=== PATIENT | female | born 1945 | race Caucasian/White ===

== ENCOUNTER → 2016-11-18 | Outpatient (CLI) | payer OTHER ==
[~2016-11-18] VITALS: Ht 152.4 cm; Wt 81.6 kg
[~2016-11-18] MED LIST: ASPIR 8181 MG PO; LIPITOR 20 MG T20 M1 PO; LISINOPRIL20 MG PO; METFORMIN HCL500 MG PO; METOPROLOL TAR100 MG PO; VANCO1GM IV
[2016-11-18 12:00] VITALS: BP 153/70
[2016-11-18 14:21] VITALS: BP 153/70
== END ==
LOC: OPONC 11:32
DX: A49.02 Methicillin resistant Staphylococcus aureus infection, unspecified site (principal); M86.9 Osteomyelitis, unspecified
CPT/HCPCS: 95000; 95001

== ENCOUNTER → 2016-11-19 | Outpatient (CLI) | payer OTHER ==
[2016-11-19 09:30] VITALS: BP 149/78
== END ==
LOC: OPONC 02:49
DX: M86.9 Osteomyelitis, unspecified (principal); B95.62 Methicillin resistant Staphylococcus aureus infection as the cause of diseases classified elsewhere
CPT/HCPCS: 27000; 95000; 95001

== ENCOUNTER → 2016-11-20 | Outpatient (CLI) | payer OTHER ==
[2016-11-20 10:21] VITALS: BP 144/66
== END ==
LOC: OPONC 06:24
DX: A49.02 Methicillin resistant Staphylococcus aureus infection, unspecified site (principal); M86.8X4 Other osteomyelitis, hand
CPT/HCPCS: 95000; 95001

== ENCOUNTER → 2016-11-22 | Outpatient (CLI) | payer OTHER | LOC: OPONC 06:06 | DX: A49.02 Methicillin resistant Staphylococcus aureus infection, unspecified site (principal); M86.8X4 Other osteomyelitis, hand | CPT/HCPCS: 95000; 95001 ==

== ENCOUNTER → 2016-11-23 | Outpatient (CLI) | payer OTHER ==
[2016-11-23 09:53] LABS: MCH 30.4 pg (26.0-34.0); MCHC 34.1 g/dL (28.0-37.0); MCV 89.2 fL (80.0-100.0); RBC 4.27 mil/uL (4.20-5.00); RDW 14.7 % (10.5-14.5); WBC 4.7 thou/uL (4.0-11.0)
[2016-11-23 10:15] LABS: ALBUMIN 3.8 g/dL (3.4-5.0); CREATININE 0.8 mg/dL (0.6-1.0); POTASSIUM 3.8 mmol/L (3.5-5.1); TOTAL BILIRUBIN 0.3 mg/dL (<0.1-1.0); TOTAL PROTEIN 7.3 g/dL (6.4-8.2)
[2016-11-23 11:27] VITALS: BP 152/75
== END ==
LOC: OPONC 02:28
PROVIDERS: Specialist
DX: A49.02 Methicillin resistant Staphylococcus aureus infection, unspecified site (principal); M86.8X4 Other osteomyelitis, hand
CPT/HCPCS: 95000; 95001

== ENCOUNTER → 2016-11-24 | Outpatient (CLI) | payer OTHER ==
[2016-11-24 09:15] VITALS: BP 152/73
== END ==
LOC: OPONC 02:34
DX: A49.02 Methicillin resistant Staphylococcus aureus infection, unspecified site (principal); M86.9 Osteomyelitis, unspecified
CPT/HCPCS: 95000; 95001

== ENCOUNTER → 2016-11-25 | Outpatient (CLI) | payer OTHER ==
[2016-11-25 09:15] VITALS: BP 140/69
== END ==
LOC: OPONC 01:36
DX: M86.9 Osteomyelitis, unspecified (principal); A49.02 Methicillin resistant Staphylococcus aureus infection, unspecified site
CPT/HCPCS: 95000; 95001

== ENCOUNTER → 2016-11-26 | Outpatient (CLI) | payer OTHER ==
[2016-11-26 09:43] LABS: ABSOLUTE NEUTROPHILS 3.1 thou/uL (1.4-8.2); BASOPHILS 0.7 % (0.0-2.0); EOSINOPHILS 6.8 % (0.0-3.0); HEMATOCRIT 38.3 % (37.0-47.0); HEMOGLOBIN 13.1 gm/dL (12.0-15.0); LYMPHOCYTES 14.8 % (24.0-44.0); MCH 30.2 pg (26.0-34.0); MCHC 34.2 g/dL (28.0-37.0); MCV 88.3 fL (80.0-100.0); MONOCYTES 8.6 % (1.0-8.0); PLATELET COUNT 185 thou/uL (150-400); POLYS 69.1 % (36.0-66.0); RBC 4.33 mil/uL (4.20-5.00); RDW 14.5 % (10.5-14.5); WBC 4.4 thou/uL (4.0-11.0)
[2016-11-26 09:46] VITALS: BP 141/73
[2016-11-26 09:47] LABS: MANUAL DIFF NO
[2016-11-26 09:52] LABS: CREATININE 0.9 mg/dL (0.6-1.0); POTASSIUM 3.4 mmol/L (3.5-5.1)
== END ==
LOC: OPONC 01:13
PROVIDERS: Specialist
DX: M86.8X8 Other osteomyelitis, other site (principal); B95.62 Methicillin resistant Staphylococcus aureus infection as the cause of diseases classified elsewhere

== ENCOUNTER → 2016-11-27 | Outpatient (CLI) | payer OTHER ==
[2016-11-27 09:47] VITALS: BP 125/69
== END ==
LOC: OPONC 00:20
DX: A49.02 Methicillin resistant Staphylococcus aureus infection, unspecified site (principal); M86.8X4 Other osteomyelitis, hand
CPT/HCPCS: 95000

== ENCOUNTER → 2016-11-28 | Outpatient (CLI) | payer OTHER | LOC: OPONC 06:08 | DX: A49.02 Methicillin resistant Staphylococcus aureus infection, unspecified site (principal); M86.8X4 Other osteomyelitis, hand | CPT/HCPCS: 95000 ==

== ENCOUNTER → 2016-11-29 | Outpatient (CLI) | payer OTHER | LOC: OPONC 05:40 | DX: A49.02 Methicillin resistant Staphylococcus aureus infection, unspecified site (principal); M86.8X4 Other osteomyelitis, hand | CPT/HCPCS: 95000 ==

== ENCOUNTER → 2016-11-30 | Outpatient (CLI) | payer OTHER ==
[2016-11-30 10:03] LABS: HEMATOCRIT 37.6 % (37.0-47.0); HEMOGLOBIN 12.9 gm/dL (12.0-15.0); MCH 30.1 pg (26.0-34.0); MCHC 34.2 g/dL (28.0-37.0); MCV 88.2 fL (80.0-100.0); RBC 4.27 mil/uL (4.20-5.00); RDW 14.5 % (10.5-14.5)
[2016-11-30 10:15] LABS: CALCIUM 9.3 mg/dL (8.5-10.1); CREATININE 0.8 mg/dL (0.6-1.0); POTASSIUM 3.9 mmol/L (3.5-5.1)
[2016-11-30 10:19] LABS: ALBUMIN 3.6 g/dL (3.4-5.0); TOTAL BILIRUBIN 0.3 mg/dL (<0.1-1.0); TOTAL PROTEIN 7.4 g/dL (6.4-8.2)
[2016-11-30 10:23] VITALS: BP 147/70
== END ==
LOC: OPONC 00:55
PROVIDERS: Specialist
DX: A49.02 Methicillin resistant Staphylococcus aureus infection, unspecified site (principal); M86.8X4 Other osteomyelitis, hand
CPT/HCPCS: 95000

== ENCOUNTER → 2016-12-01 | Outpatient (CLI) | payer OTHER ==
[2016-12-01 09:30] VITALS: BP 133/67
== END ==
LOC: OPONC 01:06
DX: M86.8X8 Other osteomyelitis, other site (principal)
CPT/HCPCS: 95000

== ENCOUNTER → 2016-12-02 | Outpatient (CLI) | payer OTHER ==
[2016-12-02 09:30] VITALS: BP 121/70
== END ==
LOC: OPONC 00:37
DX: A49.02 Methicillin resistant Staphylococcus aureus infection, unspecified site (principal); M86.8X4 Other osteomyelitis, hand
CPT/HCPCS: 95000

== ENCOUNTER → 2016-12-03 | Outpatient (CLI) | payer OTHER ==
[2016-12-03 10:05] VITALS: BP 131/74
== END ==
LOC: OPONC 00:51
DX: A49.02 Methicillin resistant Staphylococcus aureus infection, unspecified site (principal); M86.8X4 Other osteomyelitis, hand
CPT/HCPCS: 95000

== ENCOUNTER → 2016-12-04 | Outpatient (CLI) | payer OTHER ==
[2016-12-04 09:55] VITALS: BP 168/68
== END ==
LOC: OPONC 01:41
DX: A49.02 Methicillin resistant Staphylococcus aureus infection, unspecified site (principal); M86.8X4 Other osteomyelitis, hand
CPT/HCPCS: 95000

== ENCOUNTER → 2016-12-05 | Outpatient (CLI) | payer OTHER | LOC: OPONC 05:48 | DX: M86.8X5 Other osteomyelitis, thigh (principal); B95.62 Methicillin resistant Staphylococcus aureus infection as the cause of diseases classified elsewhere | CPT/HCPCS: 95000 ==

== ENCOUNTER → 2016-12-06 | Outpatient (CLI) | payer OTHER | LOC: OPONC 10:08 | DX: M86.8X4 Other osteomyelitis, hand (principal) | CPT/HCPCS: 95000 ==

== ENCOUNTER → 2016-12-07 | Outpatient (CLI) | payer OTHER ==
[2016-12-07 09:55] VITALS: BP 131/65
[2016-12-07 10:18] LABS: HEMATOCRIT 37.9 % (37.0-47.0); HEMOGLOBIN 12.8 gm/dL (12.0-15.0); MCH 29.8 pg (26.0-34.0); MCHC 33.8 g/dL (28.0-37.0); MCV 88.3 fL (80.0-100.0); RBC 4.29 mil/uL (4.20-5.00); RDW 14.4 % (10.5-14.5); WBC 4.4 thou/uL (4.0-11.0)
[2016-12-07 10:30] LABS: ALBUMIN 3.7 g/dL (3.4-5.0); CREATININE 0.9 mg/dL (0.6-1.0); POTASSIUM 3.7 mmol/L (3.5-5.1); TOTAL BILIRUBIN 0.3 mg/dL (<0.1-1.0); TOTAL PROTEIN 7.4 g/dL (6.4-8.2)
== END ==
LOC: OPONC 02:09
PROVIDERS: Specialist
DX: M86.8X4 Other osteomyelitis, hand (principal)
CPT/HCPCS: 95000

== ENCOUNTER → 2016-12-08 | Outpatient (CLI) | payer OTHER | LOC: OPONC 01:58 | DX: M86.8X8 Other osteomyelitis, other site (principal); B95.62 Methicillin resistant Staphylococcus aureus infection as the cause of diseases classified elsewhere | CPT/HCPCS: 95000 ==

== ENCOUNTER → 2016-12-09 | Outpatient (CLI) | payer OTHER ==
[2016-12-09 09:50] VITALS: BP 144/67
== END ==
LOC: OPONC 01:34
DX: M86.8X8 Other osteomyelitis, other site (principal)
CPT/HCPCS: 95000

== ENCOUNTER → 2016-12-12 | Outpatient (CLI) | payer OTHER | LOC: OPONC 12-11 08:35 | DX: M86.8X4 Other osteomyelitis, hand (principal); B95.62 Methicillin resistant Staphylococcus aureus infection as the cause of diseases classified elsewhere | CPT/HCPCS: 95000 ==

== ENCOUNTER → 2016-12-14 | Outpatient (CLI) | payer OTHER ==
[2016-12-14 10:02] LABS: HEMATOCRIT 37.3 % (37.0-47.0); MCH 30.7 pg (26.0-34.0); MCHC 34.8 g/dL (28.0-37.0); MCV 88.4 fL (80.0-100.0); RBC 4.22 mil/uL (4.20-5.00); RDW 14.6 % (10.5-14.5); WBC 4.2 thou/uL (4.0-11.0)
[2016-12-14 10:15] LABS: ALBUMIN 3.6 g/dL (3.4-5.0); CALCIUM 8.9 mg/dL (8.5-10.1); CREATININE 0.8 mg/dL (0.6-1.0); POTASSIUM 3.9 mmol/L (3.5-5.1); TOTAL BILIRUBIN 0.4 mg/dL (<0.1-1.0); TOTAL PROTEIN 7.2 g/dL (6.4-8.2)
[2016-12-14 11:02] VITALS: BP 129/67
== END ==
LOC: OPONC 00:34
PROVIDERS: Specialist
DX: M86.8X4 Other osteomyelitis, hand (principal); B95.62 Methicillin resistant Staphylococcus aureus infection as the cause of diseases classified elsewhere
CPT/HCPCS: 95000

== ENCOUNTER → 2016-12-15 | Outpatient (CLI) | payer OTHER ==
[2016-12-15 09:56] VITALS: BP 139/70
== END ==
LOC: OPONC 07:44
DX: M86.8X4 Other osteomyelitis, hand (principal); B95.62 Methicillin resistant Staphylococcus aureus infection as the cause of diseases classified elsewhere
CPT/HCPCS: 95000

== ENCOUNTER → 2016-12-16 | Outpatient (CLI) | payer OTHER ==
[2016-12-16 09:30] VITALS: BP 125/74
== END ==
LOC: OPONC 02:33
DX: M86.8X4 Other osteomyelitis, hand (principal); B95.62 Methicillin resistant Staphylococcus aureus infection as the cause of diseases classified elsewhere
CPT/HCPCS: 95000

== ENCOUNTER → 2016-12-17 | Outpatient (CLI) | payer OTHER ==
[2016-12-17 11:14] VITALS: BP 151/67
== END ==
LOC: OPONC 01:41
DX: M86.8X4 Other osteomyelitis, hand (principal); B95.62 Methicillin resistant Staphylococcus aureus infection as the cause of diseases classified elsewhere
CPT/HCPCS: 95000

== ENCOUNTER → 2016-12-18 | Outpatient (CLI) | payer OTHER | LOC: OPONC 00:57 | DX: M86.8X4 Other osteomyelitis, hand (principal); B95.62 Methicillin resistant Staphylococcus aureus infection as the cause of diseases classified elsewhere | CPT/HCPCS: 95000 ==

== ENCOUNTER → 2016-12-19 | Outpatient (CLI) | payer OTHER | LOC: OPONC 12-18 07:02 | DX: M86.8X4 Other osteomyelitis, hand (principal); B95.62 Methicillin resistant Staphylococcus aureus infection as the cause of diseases classified elsewhere | CPT/HCPCS: 95000 ==

== ENCOUNTER → 2016-12-20 | Outpatient (CLI) | payer OTHER | LOC: OPONC 07:05 | DX: M86.8X4 Other osteomyelitis, hand (principal); B95.62 Methicillin resistant Staphylococcus aureus infection as the cause of diseases classified elsewhere | CPT/HCPCS: 95000 ==

== ENCOUNTER → 2016-12-21 | Outpatient (CLI) | payer OTHER ==
[2016-12-21 09:52] LABS: HEMATOCRIT 38.9 % (37.0-47.0); MCH 29.7 pg (26.0-34.0); MCHC 33.6 g/dL (28.0-37.0); MCV 88.4 fL (80.0-100.0); RBC 4.4 mil/uL (4.20-5.00); RDW 14.7 % (10.5-14.5); WBC 6.1 thou/uL (4.0-11.0)
[2016-12-21 10:17] LABS: ALBUMIN 3.7 g/dL (3.4-5.0); CREATININE 0.8 mg/dL (0.6-1.0); TOTAL BILIRUBIN 0.4 mg/dL (<0.1-1.0); TOTAL PROTEIN 7.5 g/dL (6.4-8.2)
[2016-12-21 13:39] VITALS: BP 145/74
== END ==
LOC: OPONC 00:23
PROVIDERS: Specialist
DX: M86.8X8 Other osteomyelitis, other site (principal); B95.62 Methicillin resistant Staphylococcus aureus infection as the cause of diseases classified elsewhere
CPT/HCPCS: 95000; 95001

== ENCOUNTER → 2016-12-22 | Outpatient (CLI) | payer OTHER | LOC: OPONC 00:57 | DX: M86.8X4 Other osteomyelitis, hand (principal); B95.62 Methicillin resistant Staphylococcus aureus infection as the cause of diseases classified elsewhere | CPT/HCPCS: 95000; 95113 ==

== ENCOUNTER → 2016-12-23 | Outpatient (CLI) | payer OTHER ==
[2016-12-23 09:44] VITALS: BP 127/67
== END ==
LOC: OPONC 00:36
DX: M86.8X8 Other osteomyelitis, other site (principal); B95.62 Methicillin resistant Staphylococcus aureus infection as the cause of diseases classified elsewhere
CPT/HCPCS: 95000

== ENCOUNTER → 2016-12-24 | Outpatient (CLI) | payer OTHER ==
[2016-12-24 09:53] VITALS: BP 120/58
== END ==
LOC: OPONC 00:45
DX: M86.8X4 Other osteomyelitis, hand (principal); B95.62 Methicillin resistant Staphylococcus aureus infection as the cause of diseases classified elsewhere
CPT/HCPCS: 95000

== ENCOUNTER → 2016-12-25 | Outpatient (CLI) | payer OTHER ==
[2016-12-25 09:59] VITALS: BP 124/62
== END ==
LOC: OPONC 01:18
DX: M86.8X4 Other osteomyelitis, hand (principal); B95.62 Methicillin resistant Staphylococcus aureus infection as the cause of diseases classified elsewhere
CPT/HCPCS: 95000

== ENCOUNTER 2016-12-26 05:45 | Outpatient (CLI) | payer OTHER | END 2016-12-26 08:00 | disposition home or self-care (01) | LOC: OPONC 05:45 | DX: M86.8X4 Other osteomyelitis, hand (principal); B95.62 Methicillin resistant Staphylococcus aureus infection as the cause of diseases classified elsewhere | CPT/HCPCS: 95000 ==

== ENCOUNTER → 2016-12-27 | Outpatient (CLI) | payer OTHER | LOC: OPONC 05:52 | DX: M86.8X4 Other osteomyelitis, hand (principal); B95.62 Methicillin resistant Staphylococcus aureus infection as the cause of diseases classified elsewhere | CPT/HCPCS: 95000 ==

== ENCOUNTER → 2016-12-28 | Outpatient (CLI) | payer OTHER ==
[2016-12-28 09:49] LABS: HEMATOCRIT 38.9 % (37.0-47.0); HEMOGLOBIN 13.1 gm/dL (12.0-15.0); MCH 29.8 pg (26.0-34.0); MCHC 33.7 g/dL (28.0-37.0); MCV 88.5 fL (80.0-100.0); RBC 4.4 mil/uL (4.20-5.00); RDW 14.7 % (10.5-14.5); WBC 4.4 thou/uL (4.0-11.0)
[2016-12-28 10:10] LABS: ALBUMIN 3.8 g/dL (3.4-5.0); CALCIUM 9.4 mg/dL (8.5-10.1); CREATININE 0.9 mg/dL (0.6-1.0); POTASSIUM 3.9 mmol/L (3.5-5.1); TOTAL BILIRUBIN 0.3 mg/dL (<0.1-1.0); TOTAL PROTEIN 7.7 g/dL (6.4-8.2)
[2016-12-28 13:56] VITALS: BP 127/65
== END ==
LOC: OPONC 04:12
PROVIDERS: Specialist
DX: M86.8X4 Other osteomyelitis, hand (principal); B95.62 Methicillin resistant Staphylococcus aureus infection as the cause of diseases classified elsewhere
CPT/HCPCS: 95000

== ENCOUNTER → 2016-12-29 | Outpatient (CLI) | payer OTHER ==
[2016-12-29 09:59] VITALS: BP 140/82
== END ==
LOC: OPONC 00:21
DX: M86.8X4 Other osteomyelitis, hand (principal); B95.62 Methicillin resistant Staphylococcus aureus infection as the cause of diseases classified elsewhere
CPT/HCPCS: 95000

== ENCOUNTER → 2016-12-30 | Outpatient (CLI) | payer OTHER ==
[2016-12-30 10:05] VITALS: BP 123/66
== END ==
LOC: OPONC 00:40
DX: M86.8X4 Other osteomyelitis, hand (principal); B95.62 Methicillin resistant Staphylococcus aureus infection as the cause of diseases classified elsewhere
CPT/HCPCS: 95000

== ENCOUNTER → 2017-02-15 | Outpatient (CLI) | payer OTHER | LOC: RAD 10:28 | DX: M86.142 Other acute osteomyelitis, left hand (principal) ==